=== PATIENT | female | born 1980 | race Caucasian/White ===

== ENCOUNTER 2022-02-12 08:48 | Outpatient (CLI) | payer BC | END 2022-02-12 08:49 | disposition home or self-care (01) | LOC: SCSMRI 08:48 | PROVIDERS: ATTEND Psychiatry & Neurology Neurology | DX: R42 Dizziness and giddiness (principal); R27.0 Ataxia, unspecified | CPT/HCPCS: 70544; 70549; 70551 ==

== ENCOUNTER 2022-05-19 14:00 | Outpatient (CLI) | payer BC | END 2022-05-19 14:01 | disposition home or self-care (01) | LOC: SLEEPLAB 14:00 | PROVIDERS: ATTEND Family Medicine | DX: G47.33 Obstructive sleep apnea (adult) (pediatric) (principal); R53.83 Other fatigue; G31.84 Mild cognitive impairment of uncertain or unknown etiology; F32.A Depression, unspecified; E66.9 Obesity, unspecified; F41.9 Anxiety disorder, unspecified; G47.00 Insomnia, unspecified; R06.83 Snoring; G47.10 Hypersomnia, unspecified; Z68.30 Body mass index [BMI] 30.0-30.9, adult | CPT/HCPCS: 95800 ==

== ENCOUNTER 2024-07-19 10:47 | Outpatient (CLI) | payer BC | END 2024-07-19 10:48 | disposition home or self-care (01) | LOC: SCSRAD 10:47 | PROVIDERS: ATTEND Nurse Practitioner Family | DX: S99.912A Unspecified injury of left ankle, initial encounter (principal) ==